=== PATIENT | male | born 1950 | race Caucasian/White ===

== ENCOUNTER 2016-11-17 21:45 | Observation (INO) | payer BC ==
[2016-11-17] MEDS ORDERED: Aspirin Low Dose CHEW TAB* 81 MG PO ONE (21:58)
[2016-11-18] LABS: Hematocrit 34 % (42-52); Hemoglobin 11.1 g/dl (14.0-18.0); Mean Corpuscular HGB Conc 33 g/dl (31-36); Mean Corpuscular Hemoglobin 28 pg (27-31); Mean Corpuscular Volume 84 fL (80-94); Mean Platelet Volume 7 um3 (7.4-10.4); Red Blood Count 4.04 10^6/ul (4.0-5.4); Red Cell Distribution Width 14 % (10.5-15); White Blood Count 10.7 10^3/ul (3.5-10.8)
[2016-11-18] MEDS ORDERED: Albuterol/Ipratropium NEB.SOL* Albuterol 2.5 MG/Ipratropium 0.5 MG 3 ML INH ONE (00:16)
[2016-11-18 00:18] LABS: Albumin 3.4 g/dL (3.2-5.2); BUN/Creatinine Ratio 18.1 (8-20); Calcium 8.8 mg/dL (8.6-10.3); EGFR African American 73.4 (>60); EGFR Non-African American 57.1 (>60); Globulin 3.3 g/dL (2-4); Potassium 3.8 mmol/L (3.5-5.0); Total Bilirubin 0.4 mg/dL (0.2-1.0); Total Protein 6.7 g/dL (6.4-8.9)
[2016-11-18 00:23] LABS: Troponin I 0.1 ng/mL (<0.04)
[2016-11-18] MEDS ORDERED: Iodixanol* (CONTRAST) 320 MG/ML 100 ML SDV IV ONE (00:23)
[2016-11-18] MEDS: Nitroglycerin TAB 0.4 MG* 0.4 MG TAB SL ONE ×2 (01:13→01:30)
--- NOTE | 2016-11-18 01:29 | ED ---
HPI Chest Pain - HPI Summary HPI Summary: 66M, hx high cholesterol, presenting for 2 weeks of progressive dyspnea on exertion. He reports night sweats. He also reports difficulty getting a deep breath. He denies dizziness. He reports intermittent heartburn and pain in his throat/jaw, currently 4/10. l He was sent to theED by his PCP, Dr. Emerson, who called me with a positive D- dimer of 650. The patient is sent in for further workup. - History of Current Complaint Chief Complaint: EDShortnessOfBreath Time Seen by Provider: 11/17/16 21:54 Hx Obtained From: Patient Onset/Duration: Started Days Ago - 14 days ago, Atraumatic Timing: Intermittent Initial Severity: Mild Current Severity: None Pain Intensity: 4 Chest Pain Radiates: No Chest Pain Radiates To:: Jaw Character: Burning, Dyspnea at Exertion Aggravating Factor(s): Deep Breaths, Other: - cough Associated Signs and Symptoms: Positive: Diaphoresis, Cough - Risk Factors Pulmonary Embolism Risk Factors: Negative TAD Risk Factors: Negative AMI/ACS Risk Factors: Dyslipidemia - Additional Pertinent History Primary Care Physician: Ki Referred By: PCP Previous Visit Within 72 Hours for the same complaint: PCP Recent Stress Test: No - Allergy/Home Medications Allergies/Adverse Reactions: Allergies Allergy/AdvReac Type Severity Reaction Status Date / Time SEASONAL Allergy CONGESTION, Uncoded 11/17/16 23:21 RUNNY NOSE PMH/Surg Hx/FS Hx/Imm Hx Previously Healthy: No Endocrine/Hematology History: Denies: Hx Diabetes, Hx Thyroid Disease Cardiovascular History: Reports: Hx Hypercholesterolemia Denies: Hx Congestive Heart Failure, Hx Hypertension, Hx Pacemaker/ICD Respiratory History: Denies: Hx Asthma, Hx Chronic Obstructive Pulmonary Disease (COPD) GI History: Denies: Hx Ulcer History: Denies: Hx Dialysis, Hx Renal Disease Musculoskeletal History: Denies: Hx Rheumatoid Arthritis, Hx Osteoporosis Sensory History: Denies: Hx Hearing Aid Psychiatric History: Denies: Hx Panic Disorder - Surgical History Surgery Procedure, Year, and Place: Left rotator cuff repair 2007. knee repair , cyst removed in 1979. 2015 VOCAL CORD SURGERY Infectious Disease History: No Infectious Disease History: Denies: Hx Clostridium Difficile, Hx Hepatitis, Hx Human Immunodeficiency Virus (HIV), Hx of Known/Suspected MRSA, Hx Shingles, Hx Tuberculosis, Hx Known/ Suspected VRE, Hx Known/Suspected VRSA, History Other Infectious Disease, Traveled Outside the [place] in Last 30 Days - Social History Alcohol Use: Occasionally Substance Use Type: Reports: None Smoking Status (MU): Former Smoker Type: Cigarettes Amount Used/How Often: 1 pack a day Length of Time of Smoking/Using Tobacco: 11 years Have You Smoked in the Last Year: No Review of Systems Constitutional: Negative Eyes: Negative ENT: Negative Cardiovascular: Negative Positive: Chest Pain Positive: Shortness Of Breath, Cough - nonproductive Gastrointestinal: Negative Genitourinary: Negative Musculoskeletal: Negative Skin: Negative Neurological: Negative Psychological: Normal All Other Systems Reviewed And Are Negative: Yes Physical Exam Triage Information Reviewed: Yes Vital Signs On Initial Exam: Initial Vitals Temp Pulse Resp BP Pulse Ox 36.9 C 90 18 116/73 100 11/17/16 21:59 11/17/16 21:59 11/17/16 21:59 11/17/16 21:59 11/17/16 21:59 Vital Signs Reviewed: Yes Appearance: Positive: Well-Appearing Skin: Positive: Warm Head/Face: Positive: Normal Head/Face Inspection Eyes: Positive: Normal ENT: Positive: Normal ENT inspection Neck: Positive: Supple Respiratory/Lung Sounds: Positive: Clear to Auscultation Cardiovascular: Positive: Normal Abdomen Description: Positive: Nontender Bowel Sounds: Positive: Present Musculoskeletal: Positive: Normal Neurological: Positive: Normal Psychiatric: Positive: Normal AVPU Assessment: Alert - Albert Coma Scale Coma Scale Total: 15 Diagnostics - Vital Signs Vital Signs Temp Pulse Resp BP Pulse Ox 11/17/16 23:22 36.9 C 90 16 116/73 97 11/17/16 21:59 36.9 C 90 18 116/73 100 - Laboratory Lab Results: Lab Results 11/17/16 11/17/16 11/17/16 Range/Units 23:45 23:45 23:45 WBC 10.7 (3.5-10.8) 10^3/ul RBC 4.04 (4.0-5.4) 10^6/ul Hgb 11.1 L (14.0-18.0) g/dl Hct 34 L (42-52) % MCV 84 (80-94) fL MCH 28 (27-31) pg MCHC 33 (31-36) g/dl RDW 14 (10.5-15) % Plt Count 215 (150-450) 10^3/ul MPV 7 L (7.4-10.4) um3 Neut % (Auto) 71.1 (38-83) % Lymph % (Auto) 20.6 L (25-47) % Monroe % (Auto) 7.5 (1-9) % Eos % (Auto) 0.3 (0-6) % Baso % (Auto) 0.5 (0-2) % Absolute Neuts (auto) 7.6 (1.5-7.7) 10^3/ul Absolute Lymphs (auto) 2.2 (1.0-4.8) 10^3/ul Absolute Monos (auto) 0.8 (0-0.8) 10^3/ul Absolute Eos (auto) 0 (0-0.6) 10^3/ul Absolute Basos (auto) 0.1 (0-0.2) 10^3/ul Absolute Nucleated RBC 0 10^3/ul Nucleated RBC % 0 Sodium 134 (133-145) mmol/L Potassium 3.8 (3.5-5.0) mmol/L Chloride 102 (101-111) mmol/L Carbon Dioxide 27 (22-32) mmol/L Anion Gap 5 (2-11) mmol/L BUN 23 (6-24) mg/dL Creatinine 1.27 H (0.67-1.17) mg/dL Est GFR ( Amer) 73.4 (>60) Est GFR (Non-Af Amer) 57.1 (>60) BUN/Creatinine Ratio 18.1 (8-20) Glucose 118 H (70-100) mg/dL Lactic Acid 0.7 (0.5-2.0) mmol/L Calcium 8.8 (8.6-10.3) mg/dL Total Bilirubin 0.40 (0.2-1.0) mg/dL AST 26 (13-39) U/L ALT 36 (7-52) U/L Alkaline Phosphatase 94 (34-104) U/L Troponin I 0.10 H* (<0.04) ng/mL Total Protein 6.7 (6.4-8.9) g/dL Albumin 3.4 (3.2-5.2) g/dL Globulin 3.3 (2-4) g/dL Albumin/Globulin Ratio 1.0 (1-3) Result Diagrams: 11/17/16 23:45 11/17/16 23:45 Lab Statement: Any lab studies that have been ordered have been reviewed, and results considered in the medical decision making process. - CT No standard instances CT Interpretation: No Acute Changes CT Interpretation Completed By: ED Physician, Radiologist Chest Pain Course/Dx - Diagnoses Provider Diagnoses: Elevated troponin, Chest pain, unspecified, Dyspnea Discharge - Discharge Plan Condition: Good Disposition: ADMITTED TO [facility]
[2016-11-18] MEDS ORDERED: Acetaminophen TAB* 325 MG PO PRN (01:34)
[2016-11-18] MEDS ORDERED: traMADol TAB* 50 MG PO PRN (01:34)
[2016-11-18] MEDS ORDERED: CMCS: Melatonin (NF) 3 MG TAB PO PRN (01:34)
[2016-11-18] MEDS ORDERED: Albuterol 2.5 MG/3 ML NEB.SOL* (0.083%) INH PRN (01:34)
[2016-11-18] MEDS ORDERED: Morphine INJ* 2 MG/ML 1 ML SYRINGE IV PRN (01:34)
[2016-11-18] MEDS ORDERED: Ondansetron INJ* 2 MG/ML VIAL IV PRN (01:34)
[2016-11-18] MEDS ORDERED: NS 0.9% 1000 ML* 1,000 ML IV SCH (01:45)
[2016-11-18] MEDS: Metoprolol Tartrate TAB* 25 MG PO SCH ×2 (02:00→09:42)
--- NOTE | 2016-11-18 02:53 | HP ---
H&P (Free Text) History and Physical: PCP: Valdo Emerson MD Cardiology: Loki Harman MD Date/Time of Evaluation: 11/18/2016 0130 CC: SOB HPI: Mr Triana is a 66YO male HX HLD who has been having mild stable SOB for the past 2 weeks as well as intermittent chest heaviness, although they are not necessarily associated. He denies F/C, weight loss, N/V, changes in bowel/ bladder, black/bloody stool, palpitations, or light-headedness. There has been no radiation of the heaviness. His bigger complaint is of nightly night-sweats for the past month. Labs ordered by his PCP today were concerning for a d-dimer of >600 for which he was recommended to come [place] [facility] [place]. 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; full code status FamHx: denies ROS: as above, otherwise reviewed and all were negative Constitutional: NAD, normally developed, well-nourished white male vitals: Vital Signs Temp 36.9 C 11/17/16 23:22 Pulse 99 11/18/16 02:00 Resp 16 11/17/16 23:22 BP 115/64 11/18/16 01:30 Pulse Ox 97 11/18/16 02:00 Intake & Output 11/17/16 11/17/16 11/18/16 11:59 23:59 11:59 Weight 64.864 kg 64.864 kg HEENM: atraumatic; sclera/conjunctiva: non-icteric/clear; hearing: clinically intact; oropharynx: clear, mucosa moist Neck: soft tissue: ; thyroid: Pulmonary: clear to auscultation bilaterally, good aeration, no accessory muscle use CV: RR/RR, normal S1S2, no carotid bruit, no jugular venous distention, 2+ B DP/ PT, no edema Abdominal: soft, non-distended, non-tender, no rebound/guarding/rigidity, normoactive bowel sounds, no hepatosplenomegaly or masses, no costovertebral angle tenderness Musculoskeletal: general: grossly intact; gait: stable Integumental: normal appearance and texture of exposed skin Psychiatric orientation: AA&O to PPS affect: calm mood: cooperative eye contact: good content: reliable, minimizes responses: timely insight: good Testing: Lab Results 11/17/16 11/17/16 11/17/16 Range/Units 23:45 23:45 23:45 WBC 10.7 (3.5-10.8) 10^3/ul RBC 4.04 (4.0-5.4) 10^6/ul Hgb 11.1 L (14.0-18.0) g/dl Hct 34 L (42-52) % MCV 84 (80-94) fL MCH 28 (27-31) pg MCHC 33 (31-36) g/dl RDW 14 (10.5-15) % Plt Count 215 (150-450) 10^3/ul MPV 7 L (7.4-10.4) um3 Neut % (Auto) 71.1 (38-83) % Lymph % (Auto) 20.6 L (25-47) % Faulkner % (Auto) 7.5 (1-9) % Eos % (Auto) 0.3 (0-6) % Baso % (Auto) 0.5 (0-2) % Absolute Neuts (auto) 7.6 (1.5-7.7) 10^3/ul Absolute Lymphs (auto) 2.2 (1.0-4.8) 10^3/ul Absolute Monos (auto) 0.8 (0-0.8) 10^3/ul Absolute Eos (auto) 0 (0-0.6) 10^3/ul Absolute Basos (auto) 0.1 (0-0.2) 10^3/ul Absolute Nucleated RBC 0 10^3/ul Nucleated RBC % 0 Sodium 134 (133-145) mmol/L Potassium 3.8 (3.5-5.0) mmol/L Chloride 102 (101-111) mmol/L Carbon Dioxide 27 (22-32) mmol/L Anion Gap 5 (2-11) mmol/L BUN 23 (6-24) mg/dL Creatinine 1.27 H (0.67-1.17) mg/dL Est GFR ( Amer) 73.4 (>60) Est GFR (Non-Af Amer) 57.1 (>60) BUN/Creatinine Ratio 18.1 (8-20) Glucose 118 H (70-100) mg/dL Lactic Acid 0.7 (0.5-2.0) mmol/L Calcium 8.8 (8.6-10.3) mg/dL Total Bilirubin 0.40 (0.2-1.0) mg/dL AST 26 (13-39) U/L ALT 36 (7-52) U/L Alkaline Phosphatase 94 (34-104) U/L Troponin I 0.10 H* (<0.04) ng/mL Total Protein 6.7 (6.4-8.9) g/dL Albumin 3.4 (3.2-5.2) g/dL Globulin 3.3 (2-4) g/dL Albumin/Globulin Ratio 1.0 (1-3) ECG, personally reviewed: NSR rate 83, no ischemia CTA chest, personally reviewed: no PE or pneumonia seen, final report pending XRY sinus series, personally reviewed: no sinus air/fluid level seen, final report pending Impression: 66M presenting with SOB/chest heaviness x2 weeks & night sweats x1 month DIAGNOSIS & PLAN Primary SOB/chest heaviness & elevated troponin : primary dDx: unstable angina vs occult infection w/ demand ischemia : telemetry : trend troponin : aspirin : metoprolol : supplemental oxygen : NPO for exercise stress test in AM : supportive care night sweats : primary dDx: occult infection vs neoplastic process (leukemia/lymphoma) vs other : check sinus XRY series : trial of levofloxacin PO : continue outpatient monitoring and work up via PCP Secondary HLD : continue statin Admission Rational: CDU admission for r/o ACS DVTp: heparin SQ Code Status: full HCP:
[2016-11-18] MEDS ORDERED: Omeprazole CAP* 20 MG PO SCH (06:00)
--- NOTE | 2016-11-18 07:52 | RAD ---
INDICATION: Shortness of breath elevated d-dimer. COMPARISON: Comparison is made with a prior CT of the chest from November 07, 2013. TECHNIQUE: A CT angiogram of the chest was performed with intravenous following intravenous injection of 67 ml of Visipaque 320 nonionic contrast. Contiguous axial sections were obtained from the lung apices through the lung bases. Images were reconstructed in the coronal and sagittal planes. FINDINGS: There is relatively homogeneous opacification of the pulmonary arteries. No intraluminal filling defect or pulmonary embolism is seen. The heart is within normal limits in size. No pericardial effusion is present. The thoracic aorta is normal in caliber and demonstrates homogeneous contrast opacification. No significant enlarged mediastinal or hilar lymph nodes are seen. There is a bulla present at the right lung apex and in the right lower lobe with a minimally thickened wall which was present on the prior study. There is mild dependent bilateral lower lobe subsegmental atelectasis. The lungs are otherwise clear. No pleural effusion is present. There is a 1.7 cm solid nodule in the right adrenal gland which is unchanged from the prior exam and therefore most consistent with a benign adenoma. There is a calcification within the gallbladder. No significant focal osseous abnormality is seen. IMPRESSION: 1. NO EVIDENCE FOR PULMONARY EMBOLISM. 2. STABLE RIGHT ADRENAL NODULE FAVORING A BENIGN ADENOMA. 3. CHOLELITHIASIS.
--- NOTE | 2016-11-18 07:55 | RAD ---
INDICATION: Cough and night sweats. TECHNIQUE: 4 views of the paranasal sinuses were obtained. FINDINGS: The paranasal sinuses appear clear. No significant focal osseous abnormality is seen. IMPRESSION: NO EVIDENCE FOR SINUSITIS.
[2016-11-18] MEDS ORDERED: Docusate CAP* 100 MG PO SCH (09:00)
[2016-11-18] MEDS ORDERED: Levofloxacin TAB* 750 MG PO SCH (09:00)
[2016-11-18] MEDS ORDERED: Aspirin Low Dose CHEW TAB* 81 MG PO SCH (09:00)
[2016-11-18] MEDS ORDERED: Atorvastatin* 10 MG TAB PO SCH (09:00)
[2016-11-18 13:48] VITALS: BP 118/72
--- NOTE | 2016-11-18 15:12 | DCNOTE ---
Patient seen this AM and again in the afternoon. He reports no symptoms here in the hospital, is anxious to leave. Did not get much sleep which is why he says he did not have night sweats last night. On exam, RRR, s1 and s2 present, PRATIK, lungs CTA B/L, no w/r/r, abd soft, NTND, BS+ Exercise stress test normal. Lab work (aside from troponin elevation) normal. Procalcitonin normal. Will discharge home with close PCP follow-up regarding ongoing night sweats.
--- NOTE | 2016-11-18 16:08 | DS ---
CC: Dr. Emerson DATE OF ADMISSION: 11/17/2016. DATE OF DISCHARGE: 11/18/2016. PRIMARY CARE PHYSICIAN: Dr. Emerson. PRINCIPAL DISCHARGE DIAGNOSES: Chest tightness, troponin elevation, night sweats. STUDIES DONE DURING HOSPITALIZATION: 1. CTA of the chest: Impression: No evidence for pulmonary embolism. Stable right adrenal nodule favoring a benign adenoma. Cholelithiasis. 2. Paranasal sinus x-rays: Impression: No evidence for sinusitis. 3. Exercise stress test: Low risk. No concern for ischemia. DISCHARGE MEDICATION REGIMEN: 1. Aspirin 81 mg by mouth daily. 2. Atorvastatin 40 mg by mouth daily. 3. Clarinex 5 mg by mouth daily. HISTORY OF PRESENT ILLNESS AND HOSPITAL SUMMARY: Please see the full history and physical by Dr. Hugh Sung for full details. Briefly, Mr. Triana is a 66-year- old man with a past medical history of hyperlipidemia and seasonal allergies who presented to the hospital after his PCP found him to have an elevated D-dimer as an outpatient. This was drawn in the setting of work-up for ongoing night sweats and apparently the patient was also having some intermittent chest tightness. He underwent a CTA of the chest which as above showed no evidence of pulmonary embolism. He was also noted to have an elevated troponin on admission of 0.10. This was trended and continued to trend back towards normal. Due to this and his intermittent chest tightness, he underwent a cardiac stress test on the treadmill that was negative for any signs of ischemia. The patient felt well throughout the hospitalization and did not have night sweats here, although he said he did not sleep very much either. The patient will be discharged home with no medication changes, but will need to follow-up with Dr. Emerson in the setting of his night sweats as there is an ongoing work-up. He did not endorse any weight loss as part of his symptoms. His blood work was largely normal, including a normal procalcitonin. Total time spent on this discharge was 45 minutes. This is a summary of this hospitalization. Please see the full medical record for further details. [id number]/CPS #: [id number] MTDD
[2016-11-18] MEDS ORDERED: Cetirizine* 10 MG TAB PO SCH (18:00)
[2016-11-19] MEDS ORDERED: Heparin VIAL(*) 5000 UNITS/ML VIAL (FIVE THOUSAND) SUBCUT SCH (06:00)
== END 2016-11-18 15:30 | disposition home or self-care (01) ==
LOC: ED 21:45 → MEDTELE 11-18 01:31
PROVIDERS: ADMIT Hospitalist; ATTEND Hospitalist
DX: R07.9 Chest pain, unspecified (principal); R74.8 Abnormal levels of other serum enzymes; R06.00 Dyspnea, unspecified; R61 Generalized hyperhidrosis; E78.5 Hyperlipidemia, unspecified; K80.20 Calculus of gallbladder without cholecystitis without obstruction; R01.1 Cardiac murmur, unspecified; Z87.891 Personal history of nicotine dependence
CPT/HCPCS: 36415; 70220; 71275; 80053; 83605; 84145; 84484; 85025; 93005; 99285; A9270-GY; G0378; Q9967

== ENCOUNTER 2016-12-08 17:52 | Inpatient (IN) | payer BC ==
[2016-12-08] MEDS ORDERED: NS 0.9% 1000 ML* 1,000 ML IV ONE (19:40)
[2016-12-08] MEDS ORDERED: Ondansetron INJ* 2 MG/ML VIAL IV PRN (20:00)
[2016-12-08] MEDS ORDERED: Al Hydrox/Mg Hydrox/Simet LIQ* 30 ML UDC PO PRN (20:00)
[2016-12-08] MEDS ORDERED: Senna TAB PO PRN (20:00)
[2016-12-08] MEDS ORDERED: Docusate CAP* 100 MG PO PRN (20:00)
[2016-12-08] MEDS ORDERED: Acetaminophen TAB* 325 MG PO PRN (20:00)
[2016-12-08] MEDS ORDERED: Vancomycin(*) 1,250 MG in NS 0.9% 250 ML* 250 ML IVPB ONE (20:02)
[2016-12-08 20:07] LABS: Hematocrit 34 % (42-52); Hemoglobin 11.2 g/dl (14.0-18.0); Mean Corpuscular HGB Conc 33 g/dl (31-36); Mean Corpuscular Hemoglobin 27 pg (27-31); Mean Corpuscular Volume 84 fL (80-94); Mean Platelet Volume 7 um3 (7.4-10.4); Red Blood Count 4.09 10^6/ul (4.0-5.4); Red Cell Distribution Width 14 % (10.5-15); White Blood Count 7.3 10^3/ul (3.5-10.8)
[2016-12-08] MEDS ORDERED: diPHENhydraMINE PO* 50 MG PO PRN (20:07)
[2016-12-08] MEDS ORDERED: NS 0.9% 250 ML* 250 ML ONE (20:09)
--- NOTE | 2016-12-08 20:10 | ED ---
rubia Banuelos Timothy, scribed for Yovany Clarke MD on 12/08/16 at 1941 . Complex/Multi-Sys Presentation - HPI Summary HPI Summary: Jose Triana is a 66 yo male presenting to [facility] referred by Dr. Kaplan as his blood cultures are positive for bacterial growth. He is not in any current pain at this time. He states blood cultures were done due to chronic night sweats over the past 2.5 months. He denies any N/V/D. His MHx includes valvular heart disease, HLD, chronic back pain, tobacco use. - History Of Current Complaint Chief Complaint: EDGeneral Time Seen by Provider: 12/08/16 19:39 Hx Obtained From: Patient Onset/Duration: Gradual Onset, Lasting Weeks, Still Present Timing: Constant Severity Currently: Moderate Severity Initially: Moderate Associated Signs And Symptoms: Positive: Other - bacterial culture growth from blood - Allergies/Home Medications Allergies/Adverse Reactions: Allergies Allergy/AdvReac Type Severity Reaction Status Date / Time SEASONAL Allergy CONGESTION, Uncoded 11/17/16 23:21 RUNNY NOSE Home Medications: Home Medications Aspirin EC Low Dose* [Ecotrin EC Low Dose 81 MG*] 81 mg PO DAILY 12/08/16 [ History Confirmed 12/08/16] Atorvastatin* [Lipitor*] 20 mg PO DAILY 12/08/16 [History Confirmed 12/08/16] DOXYcycline CAP(*) [DOXYcycline 100MG CAP(*)] 100 mg PO BID AC 12/08/16 [ History Confirmed 12/08/16] Desloratidine (NF) [Clarinex (NF)] 5 mg PO DAILY 12/08/16 [History Confirmed 04/16] Temazepam CAP* [Restoril CAP*] 30 mg PO BEDTIME MDD 30 mg 12/08/16 [History Confirmed 12/08/16] guaiFENesin/CODIEN 100MG-10MG* [Robitussin AC 100Mg-10Mg*] 5 - 10 ml PO Q4H PRN 12/08/16 [History Confirmed 12/08/16] PMH/Surg Hx/FS Hx/Imm Hx Endocrine/Hematology History: Denies: Hx Diabetes, Hx Thyroid Disease Cardiovascular History: Reports: Hx Hypercholesterolemia, Hx 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 Denies: Hx Angina, Hx Congestive Heart Failure, Hx Coronary Artery Disease, Hx Hypertension, Hx Myocardial Infarction, Hx Pacemaker/ICD Respiratory History: Denies: Hx Asthma, Hx Chronic Obstructive Pulmonary Disease (COPD) GI History: Denies: Hx Ulcer History: Denies: Hx Dialysis, Hx Renal Disease Musculoskeletal History: Denies: Hx Rheumatoid Arthritis, Hx Osteoporosis Sensory History: Reports: Hx Contacts or Glasses Denies: Hx Hearing Aid Opthamlomology History: Reports: Hx Contacts or Glasses Psychiatric History: Denies: Hx Panic Disorder - Surgical History Surgery Procedure, Year, and Place: Left rotator cuff repair 2007. knee repair , cyst removed in 1979. 2015 VOCAL CORD SURGERY Infectious Disease History: No Infectious Disease History: Denies: Hx Clostridium Difficile, Hx Hepatitis, Hx Human Immunodeficiency Virus (HIV), Hx of Known/Suspected MRSA, Hx Shingles, Hx Tuberculosis, Hx Known/ Suspected VRE, Hx Known/Suspected VRSA, History Other Infectious Disease, Traveled Outside the [place] in Last 30 Days - Family History Known Family History: Positive: Cardiac Disease Negative: Hypertension, Diabetes - Social History Alcohol Use: Occasionally Substance Use Type: Reports: None Smoking Status (MU): Former Smoker Type: Cigarettes Amount Used/How Often: 1 pack a day Length of Time of Smoking/Using Tobacco: 11 years Have You Smoked in the Last Year: No Review of Systems Constitutional: Other - positive bacteral blood culture growth Positive: Skin Diaphoresis - "night sweats" Eyes: Negative ENT: Negative Cardiovascular: Negative Respiratory: Negative Gastrointestinal: Negative Genitourinary: Negative Musculoskeletal: Negative Skin: Negative Neurological: Negative Psychological: Normal All Other Systems Reviewed And Are Negative: Yes Physical Exam Triage Information Reviewed: Yes Vital Signs On Initial Exam: Initial Vitals Pulse Resp BP Pulse Ox 96 17 126/79 100 12/08/16 18:23 12/08/16 18:23 12/08/16 18:23 12/08/16 18:23 Vital Signs Reviewed: Yes Appearance: Positive: Well-Appearing, No Pain Distress Skin: Positive: Warm Head/Face: Positive: Normal Head/Face Inspection Eyes: Positive: Normal ENT: Positive: Hearing grossly normal Neck: Positive: Supple, Nontender Respiratory/Lung Sounds: Positive: Clear to Auscultation, Breath Sounds Present Cardiovascular: Positive: RRR. Negative: Murmur Abdomen Description: Positive: Nontender, No Organomegaly, Soft Bowel Sounds: Positive: Present Musculoskeletal: Positive: Strength/ROM Intact Neurological: Positive: Alert, Oriented to Person Place, Time - Albert Coma Scale Coma Scale Total: 15 Diagnostics - Vital Signs Vital Signs Temp Pulse Resp BP Pulse Ox 12/08/16 19:09 98 F 87 18 116/74 95 12/08/16 19:00 88 28 116/74 96 12/08/16 18:58 116/70 12/08/16 18:23 96 17 126/79 100 - Laboratory Result Diagrams: 12/08/16 20:00 12/08/16 20:00 Lab Statement: Any lab studies that have been ordered have been reviewed, and results considered in the medical decision making process. Complex Multi-Symp Course/Dx Assessment/Plan: Jose Triana is a 66 yo male [facility] referred by Dr. Kaplan for positive bacterial blood culture growth. Pt medication list reviewed this visit. In the ED course he received IV fluids. After clinical examination and discussion with Dr. Kaplan and Dr. Garsia, he will be admitted to [facility] for further observation, evaluation, and treatment. Pt was admitted with EKG, CXR, and lab studies pending. 0744 - Dr. Garsia (hopsitalist) - discussed Pt ocndition and discussion with Dr. Kaplan, agrees to admit Pt. - Diagnoses Provider Diagnoses: Bacteremia - Physician Notifications Discussed Care Of Patient With: Juan J Kaplan MD - Discussed Pt condition and requests for Tx. Time Discussed With Above Provider: 19:42 Instructed by Provider To: Admit As Inpatient Discharge - Discharge Plan Condition: Fair Disposition: ADMITTED TO [facility] Discharge Disposition Comment: admission for further observation, evaluation, and treatment. The documentation as recorded by the rubia farfan Timothy accurately reflects the service I personally performed and the decisions made by me, Yovany Clarke MD.
[2016-12-08 20:25] LABS: Albumin 3.5 g/dL (3.2-5.2); BUN/Creatinine Ratio 19.8 (8-20); C Reactive Protein 71.13 mg/L (< 5.00); Calcium 8.8 mg/dL (8.6-10.3); EGFR African American 95.6 (>60); EGFR Non-African American 74.4 (>60); Globulin 3.6 g/dL (2-4); Total Bilirubin 0.4 mg/dL (0.2-1.0); Total Protein 7.1 g/dL (6.4-8.9)
[2016-12-08 20:41] LABS: Urine Bilirubin Negative (Negative); Urine Glucose Negative (Negative); Urine Nitrite Negative (Negative)
[2016-12-08 20:56] LABS: Urine Bacteria Absent (Absent)
[2016-12-08] MEDS ORDERED: Vancomycin per Pharmacy* NOTE FOLLOW UP SCH (21:00)
[2016-12-08] MEDS: Heparin VIAL(*) 5000 UNITS/ML VIAL (FIVE THOUSAND) SUBCUT SCH (23:00)
[2016-12-08] MEDS: Benzonatate CAP* 100 MG PO PRN (23:06)
[2016-12-08] MEDS: Temazepam CAP* 15 MG PO PRN (23:06)
--- NOTE | 2016-12-09 00:40 | HP ---
CC: Flako Emerson MD * HISTORY AND PHYSICAL: DATE OF ADMISSION: 12/08/16 PRIMARY CARE PHYSICIAN: Flako Emerson MD TIME OF EVALUATION: 1999. CHIEF COMPLAINT: Night sweats and positive blood culture. HISTORY OF PRESENT ILLNESS: This is a 66-year-old male with an unremarkable past medical history who presents to the emergency room after being called from Dr. Duff that he had positive blood culture. The patient states he has had 8 weeks of night sweats that seemed to have gotten progressively worse, where he goes through several T-shirts and towels throughout the evening. He is also noted to have a dry cough as well. The patient was admitted back in October for shortness of breath and had a negative stress test. He has been seen by Dr. Emerson and has had an extensive workup for his night sweats with an unremarkable workup, was then sent to Dr. Duff, was seen in his office yesterday on the Dr. Duff sent him for blood cultures that came back gram-positive cocci. The patient denies any weight loss. No chest pain, no shortness of breath. No nausea or vomiting. Two days ago he had an episode of diarrhea that has since resolved. He denies any urinary symptoms. No rash. No leg swelling. No joint pain. Otherwise, remaining review of systems is negative. In the emergency room, the patient had labs and was referred to the hospitalist service for further evaluation. PAST MEDICAL HISTORY: 1. History of idiopathic partial vocal cord paralysis. Was told by physicians in [facility] [place] that he could lose his voice and develop full vocal cord paralysis if he was ever intubated. 2. History of a cardiac murmur. 3. Hyperlipidemia. 4. Seasonal allergies. 5. Insomnia. 6. History of admission from 11/18/16 to 11/19/16 for shortness of breath. Negative stress test at that time. MEDICATIONS: 1. Naproxen as needed. 2. Aspirin 81 mg daily. 3. Atorvastatin 20 mg daily. 4. Clarinex 5 mg daily. 5. Benadryl 3 tabs as needed at bedtime for sleep. 6. Restoril as needed at bedtime. ALLERGIES: No known drug allergies. FAMILY HISTORY: Mother is alive at age 96. Father at age 92 from a stroke. 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 He quit smoking about 25 years ago, at that time he smoked about half a pack to a pack per day for 15 years. Occasional alcohol use. No illicit drug use. Code status is full code. REVIEW OF SYSTEMS: A 14-point review of systems has been reviewed. Pertinent positives and negatives are mentioned in the HPI, otherwise negative. PHYSICAL EXAMINATION GENERAL: In no acute distress, resting comfortably with his at the bedside. VITAL SIGNS: Temp 98, pulse rate 88, respiratory rate 20, oxygen saturation 96% , blood pressure 121/66. HEENT: Head normocephalic. Pupils equal and reactive. Oropharynx; mucous membranes are moist. No erythema or exudate. NECK: Supple. No adenopathy. RESPIRATORY: Clear to auscultation. No wheezes, rhonchi, or rales. CARDIAC: Regular rate and rhythm. Blowing systolic murmur, most prominent at the apex. ABDOMEN: Soft, nontender, and nondistended. EXTREMITIES: No cyanosis, clubbing, or edema. +2 DPs. NEUROLOGIC: Alert and oriented x3. No focal neurologic deficits. Unable to appreciate any significant rashes or lesions. LABORATORY DATA: Still pending at this time. Of note, his blood culture from 12/07/16 is gram-positive cocci resembling strep. ASSESSMENT: This is a 66-year-old male with a past medical history of 8 weeks of night sweats and dry cough, found to have positive blood culture. Bacteremia. Assessment: With the duration of his symptoms, it is certainly concerning for a subacute endocarditis. Plan: Per Dr. Duff is to start him on vancomycin and ceftriaxone. We will place him n.p.o. after midnight and order a transesophageal echocardiogram. I did speak with Cardiology regarding his concern about his vocal cord paralysis issue, they do not feel this to be a concern, but to sign out to the physician in the morning to pass this along, which I will do so. We will also check a urine culture as well. The patient has been ordered baseline labs and blood culture. I will follow up with these this evening. CHRONIC MEDICAL PROBLEMS: 1. Hyperlipidemia. We will resume his atorvastatin. We will continue his baby aspirin. 2. Insomnia. Resume his Restoril and Benadryl as needed at bedtime. 3. FEN. We will place the patient on a regular diet. N.p.o. after midnight. 4. DVT prophylaxis. The patient's score is moderate risk. We will start him on heparin subcu t.i.d. 5. Code status. Full code. TIME SPENT: Greater than 65 minutes spent doing the history and physical, more than half the time was spent in direct patient contact. [id number]/[facility] #: [id number] KEVIN
[2016-12-09] MEDS: Vancomycin(*) 1,000 MG in NS 0.9% 250 ML* 250 ML IVPB SCH ×3 (05:30→22:25)
[2016-12-09] MEDS: Heparin VIAL(*) 5000 UNITS/ML VIAL (FIVE THOUSAND) SUBCUT SCH ×2 (05:33→14:01)
--- NOTE | 2016-12-09 12:48 | ECHO ---
Patient: PAULETTE SANABRIA [facility] Rec#: [id number] : 1950 Date: 12/09/2016 Age: 66y Height: 170.18 cm / 67.0 in Weight: 68.04 kg / 150.0 lbs Sex: M BSA: 1.79 Room#: 415 Admit Date#: 12/08/2016 Type: Inpatient Referring: Juan J Duff MD Reading: Paulette Harman MD Business Services Tech: Batsheva Roach,RDCS,RDMS CC: Flako Emerson MD Transthoracic Echocardiogram Indication: Bacteremia BP: 122/67 HR: 77 Rhythm: NSR Findings History: Murmur, MVP, HLD Technical Comments: The study quality is good. Completed 1110 Left Ventricle: The left ventricular chamber size is normal. Mild concentric left ventricular hypertrophy is observed. The estimated ejection fraction is 55-60%. closer to 60%. There is no consistent Doppler evidence of clinically significant diastolic dysfunction. Left Atrium: The left atrial chamber size is normal. Right Ventricle: The right ventricular chamber size and systolic function are within normal limits. The right ventricular global systolic function is low normal. Right Atrium: The right atrial cavity size is normal. Aortic Valve: The aortic valve leaflets are mildly thickened. Systolic excursion of the aortic valve is normal. There is aortic annular calcification. There is a trace of aortic regurgitation. There is no evidence of aortic stenosis. There is no aortic vegetation present. Mitral Valve: The mitral valve leaflets are mildly thickened. There is mild mitral valve prolapse. There is prolapse of the posterior leaflet of the mitral valve. There is mild to moderate mitral regurgitation. The mitral regurgitant jet is eccentric.directed toward the interatrial septum. There is no evidence of mitral stenosis. A mass is visualized on the mitral valve which appears consistent with a vegetation.The echodense lesion is mobile and elongated meauring 7 mm. It appears to be attached to the anterior leaflet and prolapses into the LA during systole. The findings are suspicious for SBE or less likely, a ruptured chordae tendinae. Tricuspid Valve: The tricuspid valve leaflets are normal. There is trace tricuspid regurgitation. No pulmonary hypertension is noted. No vegetation is observed on the tricuspid valve. Pulmonic Valve: The pulmonic valve appears normal. There is a trace pulmonic regurgitation. No vegetation is observed on the pulmonic valve. Pericardium: There is no significant pericardial effusion. Aorta: The ascending aorta is not well visualized. There is no dilatation of the aortic arch. The aortic root is normal in size. Pulmonary Artery: The main pulmonary artery is not well visualized. Venous: The inferior vena cava is dilated. There is a greater than 50% respiratory change in the inferior vena cava dimension. Conclusions Mild concentric left ventricular hypertrophy is observed. The estimated ejection fraction is 55-60%, closer to 60%. The aortic valve leaflets are mildly thickened. There is a trace of aortic regurgitation. The mitral valve leaflets are mildly thickened. There is prolapse of the posterior leaflet of the mitral valve. There is mild to moderate mitral regurgitation. The mitral regurgitant jet is eccentric directed medially. A mass is visualized on the mitral valve which appears consistent with a vegetation. The echodense lesion is mobile and elongated meauring 7 mm. It appears to be attached to the anterior leaflet and prolapsed into the LA during systole. The findings are suspicious for SBE or less likely, a ruptured chordae tendinae. Compared to prior echo report of , the mitral valve lesion is newly mentioned. The findings are otherwise similar. 12/09/16 12:46 pm ADDENDUM: direct comparison made to 08/2016. At that time, the was a redundant mobile lesion attached to the ventricular surface of the posterior leaflet, possibly representing a mobile chordae or less likely a vegetation. The mobile lesion attached to the anterior leaflet is new c/t 08/2016. Measurements Name Value Normal Range RVIDd (AP) 2D 3 cm (0.9 - 2.6) RVDdMajor (2D) 2.7 cm (2.2 - 4.4) RAd ISD 4CH 4 cm (3.4 - 4.9) RA (A4C)W 4.6 cm (2.9 - 4.6) IVSd (2D) 1.1 cm (0.6 - 1) LVPWd (2D) 1.2 cm (0.6 - 1) LVIDd (2D) 4.1 cm (3.6 - 5.4) LVIDs (2D) 2.8 cm - LV FS (2D) 31 % (25 - 45) Aortic Annulus 2 cm (1.4 - 2.6) Ao root diameter (2D) 3.2 cm (2.1 - 3.5) Aortic arch 2.3 cm (1.8 - 3.4) LA dimension (AP) 2D 3.2 cm (2.3 - 3.8) LAd ISD 4CH 4.5 cm (2.9 - 5.3) LA ISD 4CH W 4 cm (2.5 - 4.5) Name Value Normal Range LA ESV SP 4CH (A/L) 49.59 ml - LA ESV SP 2CH (A/L) 40.32 ml - LA ESV BP (A/L) 49.61 ml - LA ESV BP (A/L) index 28 ml/m2 - LA ESV SP 4CH (MOD) 46.73 ml - LA ESV SP 2CH (MOD) 37.82 ml - Name Value Normal Range MV E-wave Vmax 0.9 m/sec - MV deceleration time 184 msec - MV A-wave Vmax 0.44 m/sec - MV E:A ratio 2.1 ratio - P. vein S-wave Vmax 0.5 m/sec - P. vein D-wave Vmax 0.4 m/sec - P. vein S:D Vmax ratio 1.3 ratio - P. vein A-wave duration 83 msec - LV septal e' Vmax 0.07 m/sec - LV lateral e' Vmax 0.11 m/sec - LV E:e' septal ratio 13 ratio - LV E:e' lateral ratio 8.2 ratio - Name Value Normal Range AV Vmax 1.5 m/sec - AV VTI 27 cm - AV peak gradient 9 mmHg - AV mean gradient 4.7 mmHg - LVOT Vmax 1.2 m/sec - LVOT VTI 20.5 cm - LVOT peak gradient 6 mmHg - LVOT mean gradient 2.6 mmHg - KAMLESH Vmax 1.2 m/sec - Name Value Normal Range TR Vmax 2.4 m/sec - TR peak gradient 23 mmHg - RAP 3 mmHg - RVSP 26 mmHg - IVC diameter 2.5 cm - Name Value Normal Range PV Vmax 0.7 m/sec - PV peak gradient 2 mmHg -
[2016-12-09] MEDS: Aspirin EC Low Dose* 81 MG TAB.EC PO SCH (12:51)
--- NOTE | 2016-12-09 13:25 | CONS ---
CONSULTATION REPORT: DATE OF CONSULT: 12/09/16 REQUESTING PHYSICIAN: Dr. Garsia. CONSULTING SERVICE: Infectious Disease. REASON FOR CONSULTATION: Bacteremia and night sweats. IMPRESSION: 1. Systolic murmur, longstanding though perhaps changing characteristics,, known mitral valve prolapse, 8 weeks of drenching night sweats and gram- positive cocci in chain and blood cultures, taken together most consistent with an infective endocarditis, subacute. He has no focal musculoskeletal complaints to suggest a septic joint or spine abscess. Liver abscess would be a consideration though he has got no transaminitis and only a slight elevation of alkaline phosphatase. 2. History of vocal cord paralysis, apparently persistent and unilateral. 3. Hyperlipidemia. RECOMMENDATION: Continue vancomycin, goal trough at least 20 and ceftriaxone while we await for speciation of the streptococci. I spoke with the ER physician last night and had them obtain another set of blood cultures before the antibiotics were given, those are pending as well. Given the vocal cord paralysis, cardiology recommends having ENT see him that will be done today in preparation for possible transesophageal echocardiogram. In the meantime, I will get a transthoracic echocardiogram. If everything is negative, we will have a CT of the abdomen and pelvis to evaluate for liver abscess. HISTORY OF PRESENT ILLNESS: This is a 66-year-old man with a few weeks of night sweats, admitted with positive blood cultures. He had had the onset of drenching night sweats on , just a couple of weeks after a trip to [place]. Did not get sequelae while he was there. He has not had fevers, chills , or weight loss. His appetite has been good, but each night at 2 in the morning he get drenching sweats that he needs to go through 3 or 4 T-shirts for. He had a course of Levaquin 2 weeks ago without any improvement. He had shortly before that developed a nonproductive cough and had hospital admission for chest pain. A CT of the chest was obtained, which showed no pulmonary embolus, no parenchymal lesions other than old bullous changes. He was discharged, continued to have sweats, I discussed the case with Dr. Emerson last week. We had tick-borne infection PCR that came back negative. I saw him Wednesday, we got blood cultures that came back positive. I asked him to come in for admission last night. He has had no fever overnight, his CRP is 75. He has no focal complaints. PAST MEDICAL HISTORY: 1. Vocal cord paralysis. 2. Hyperlipidemia. 3. Heart murmur. 4. Insomnia. 5. Seasonal allergies. ALLERGIES: No known drug allergies. MEDICATIONS: 1. Tylenol. 2. Aspirin. 3. Lipitor. 4. Senna. 5. Vancomycin. 6. Ceftriaxone. SOCIAL HISTORY: He lives outside of [place]. 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 He had been to [place] a couple of weeks before he got sick. FAMILY HISTORY: No recurrent infections or tuberculosis. REVIEW OF SYSTEMS: All negative for review of systems except as noted above. PHYSICAL EXAM: Vital Signs: Temperature is 37, heart rate 80, respiratory rate 18, blood pressure 100/60, O2 sat 97% on room air. General: He is awake, not in distress. Neurologic: He is oriented x3, follows all commands. Cranial nerves II through XII are intact. HEENT: There is no conjunctival hemorrhage. Oropharynx without lesions. Neck: Neck is supple without nuchal rigidity. Lymph Nodes: There is no cervical, supraclavicular, inguinal, axillary, or epitrochlear lymphadenopathy. Heart: Regular rate and rhythm with 3/6 systolic murmur. Lungs: Clear to auscultation bilaterally. Abdomen: Soft, nontender, nondistended. There is no right upper quadrant tenderness to palpation. There is no rebound. There is bowel sounds present. Skin: There is no rash or splinter hemorrhages. Musculoskeletal: No spine tenderness to palpation or joint synovitis. DIAGNOSTIC STUDIES/LAB DATA: White blood cell count 7, hemoglobin 11, platelets 173. Creatinine 1, CRP 75, alk phos 120. Urinalysis shows blood. Please see impression and recommendations outlined above, which I have discussed with Dr. Jeffries. Thank you for asking me to see Mr. Triana in consultation. [id number]/[facility] #: [id number] KEVIN
[2016-12-09] MEDS: Atorvastatin* 20 MG TAB PO SCH (16:02)
--- NOTE | 2016-12-09 16:19 | PN ---
Subjective Date of Service: 12/09/16 Interval History: Seen and examined with at bedside Patient has no complaints he continues to have night sweats and is curious when they may resolve He is also concerned that if he needs RENNY in the future it may precipitate the need for a laryngeal surgery. Objective Active Medications: Acetaminophen (Tylenol Tab*) 650 mg PO Q4H PRN PRN Reason: FEVER/PAIN Al Hydrox/Mg Hydrox/Simethicone (Maalox Plus*) 30 ml PO Q6H PRN PRN Reason: INDIGESTION Aspirin (Aspirin Ec Low Dose*) 81 mg PO DAILY [facility] Last Admin: 12/09/16 12:51 Dose: 81 mg Atorvastatin Calcium (Lipitor*) 20 mg PO 1700 [facility] Last Admin: 12/09/16 16:02 Dose: 20 mg Benzonatate (Tessalon Cap*) 100 mg PO BID PRN PRN Reason: COUGH Last Admin: 12/08/16 23:06 Dose: 100 mg Diphenhydramine HCl (Benadryl Po*) 50 mg PO BEDTIME PRN PRN Reason: SLEEP Docusate Sodium (Colace Cap*) 100 mg PO BID PRN PRN Reason: CONSTIPATION Enoxaparin Sodium (Lovenox(*)) 40 mg SUBCUT Q24H [facility] Vancomycin HCl 1,000 mg/ (Sodium Chloride) 250 mls @ 166.667 mls/hr IVPB Q8H [facility] Last Admin: 12/09/16 14:01 Dose: 166.667 mls/hr Ondansetron HCl (Zofran Inj*) 4 mg IV Q4H PRN PRN Reason: NAUSEA/VOMITING Pharmacy Consult (Vancomycin Per Pharmacy*) 1 note FOLLOW UP .VANC PER PHARMACY [facility] Pharmacy Profile Note (Vancomycin Trough Check) 1 note FOLLOW UP 05 ONE Stop: 12/10/16 05:31 Senna (Senokot Tab*) 1 tab PO BID PRN PRN Reason: CONSTIPATION Temazepam (Restoril Cap*) 15 mg PO BEDTIME PRN PRN Reason: INSOMNIA Last Admin: 12/08/16 23:06 Dose: 15 mg Vital Signs 12/08/16 12/08/16 12/08/16 20:02 20:07 20:42 Temperature 98 F Pulse Rate 87 88 Respiratory 14 16 Rate Blood Pressure 129/78 129/78 (mmHg) O2 Sat by Pulse 97 Oximetry 12/08/16 12/08/16 12/08/16 20:46 21:30 23:31 Temperature 98.4 F 98.7 F Pulse Rate 92 90 Respiratory 20 20 16 Rate Blood Pressure 123/66 120/67 (mmHg) O2 Sat by Pulse 100 96 Oximetry 12/09/16 12/09/16 12/09/16 04:18 07:55 08:00 Temperature 99.0 F 98.4 F Pulse Rate 91 79 Respiratory 16 18 16 Rate Blood Pressure 122/67 104/64 (mmHg) O2 Sat by Pulse 94 97 Oximetry 12/09/16 12/09/16 11:52 15:47 Temperature 98.6 F 98.3 F Pulse Rate 77 81 Respiratory 16 20 Rate Blood Pressure 108/63 119/64 (mmHg) O2 Sat by Pulse 98 99 Oximetry Appearance: NAD, interactive Eyes: No Scleral Icterus, PERRLA Ears/Nose/Mouth/Throat: NL Teeth, Lips, Gums, Clear Oropharnyx, Mucous Membranes Moist Neck: NL Appearance and Movements; NL JVP, Trachea Midline Respiratory: Symmetrical Chest Expansion and Respiratory Effort, Clear to Auscultation Cardiovascular: RRR, - - 2/6 diastolic EM, ?S4 loudest RUSB Abdominal: NL Sounds; No Tenderness; No Distention, No Hepatosplenomegaly Lymphatic: No Cervical Adenopathy, No Axillary Adenopathy Extremities: No Edema, No Clubbing, Cyanosis Skin: No Rash or Ulcers, No Nodules or Sclerosis Neurological: Alert and Oriented x 3 Result Diagrams: 12/08/16 20:00 12/08/16 20:00 Assess/Plan/Problems-Billing Assessment: 66 yo M with approximately 6 weeks drenching night sweats admitted after found with +blood cultures as outpatient now with TTE c/w infective endocarditis - Patient Problems (1) Infective endocarditis Comment: anterior mitral leaflet vegitation seen on TTE Pt has concern should he need RENNY in the future (ie for worsening MR). I have asked Dr. Vila to consult and comment on any specifical precautions that would be needed should RENNY be needed. c/w vancomycin. Bcx from 12/07 with 2 differnt species strep. Still be evaluated by lab. Dr. Kaplan is following. repeat CBC and CRP tomorrow 12/10 Hold on PICC placement for now (2) Transaminitis Comment: minimal repeat LFTs tomorrow If remain elevated plan for RUQ ultrasound (3) Laryngeal disorder Comment: stable (4) DVT prophylaxis Comment: lovenox
[2016-12-09] MEDS: Benzonatate CAP* 100 MG PO PRN (22:33)
[2016-12-10] MEDS: Temazepam CAP* 15 MG PO PRN ×2 (00:25→22:22)
[2016-12-10] MEDS ORDERED: Vancomycin Trough Check NOTE FOLLOW UP ONE (05:30)
[2016-12-10 05:47] LABS: Hematocrit 35 % (42-52); Hemoglobin 11.4 g/dl (14.0-18.0); Mean Corpuscular HGB Conc 33 g/dl (31-36); Mean Corpuscular Hemoglobin 27 pg (27-31); Mean Corpuscular Volume 84 fL (80-94); Mean Platelet Volume 6 um3 (7.4-10.4); Red Blood Count 4.18 10^6/ul (4.0-5.4); Red Cell Distribution Width 14 % (10.5-15); White Blood Count 7.3 10^3/ul (3.5-10.8)
[2016-12-10 06:01] LABS: Albumin 3.2 g/dL (3.2-5.2); C Reactive Protein 70.25 mg/L (< 5.00); Direct Bilirubin 0.1 mg/dL (0.03-0.18); Globulin 3.4 g/dL (2-4); Indirect Bilirubin 0.2 mg/dL (0.3-1.0); Total Bilirubin 0.3 mg/dL (0.2-1.0); Total Protein 6.6 g/dL (6.4-8.9)
[2016-12-10] MEDS ORDERED: Lidocaine 4% TOPICAL* 50 ML TOP.SOLN TOPICAL ONE (06:30)
[2016-12-10] MEDS ORDERED: Oxymetazoline 0.05% NASAL SPR* 15 ML BTL ONE (06:30)
[2016-12-10] MEDS: Vancomycin(*) 1,000 MG in NS 0.9% 250 ML* 250 ML IVPB SCH (06:33)
[2016-12-10] MEDS: Enoxaparin(*) 40 MG/0.4 ML SYR SUBCUT SCH (08:52)
[2016-12-10] MEDS: Aspirin EC Low Dose* 81 MG TAB.EC PO SCH (08:53)
--- NOTE | 2016-12-10 10:05 | PN ---
Subjective Date of Service: 12/10/16 Interval History: Patient seen this morning with Dr. Duff. Reports dry cough overnight, had sweats as well. Otherwise, feeling well, anxious to leave. Family History: Unchanged from Admission Social History: Unchanged from Admission Past Medical History: Unchanged from Admission Objective Active Medications: Acetaminophen (Tylenol Tab*) 650 mg PO Q4H PRN Al Hydrox/Mg Hydrox/Simethicone (Maalox Plus*) 30 ml PO Q6H PRN Aspirin (Aspirin Ec Low Dose*) 81 mg PO DAILY [facility] Atorvastatin Calcium (Lipitor*) 20 mg PO 1700 [facility] Benzonatate (Tessalon Cap*) 100 mg PO BID PRN Diphenhydramine HCl (Benadryl Po*) 50 mg PO BEDTIME PRN Docusate Sodium (Colace Cap*) 100 mg PO BID PRN Enoxaparin Sodium (Lovenox(*)) 40 mg SUBCUT Q24H [facility] Vancomycin HCl 1,250 mg/ (Sodium Chloride) 250 mls @ 166.667 mls/hr IVPB Q8H [facility] Ondansetron HCl (Zofran Inj*) 4 mg IV Q4H PRN Pharmacy Consult (Vancomycin Per Pharmacy*) 1 note FOLLOW UP .VANC PER PHARMACY [facility] Pharmacy Profile Note (Vancomycin Trough Check) 1 note FOLLOW UP 1130 ONE Senna (Senokot Tab*) 1 tab PO BID PRN Temazepam (Restoril Cap*) 15 mg PO BEDTIME PRN Vital Signs 12/09/16 12/09/16 12/09/16 11:52 15:47 19:54 Temperature 98.6 F 98.3 F 99.5 F Pulse Rate 77 81 91 Respiratory 16 20 18 Rate Blood Pressure 108/63 119/64 111/66 (mmHg) O2 Sat by Pulse 98 99 98 Oximetry 12/10/16 07:31 Temperature 98.3 F Pulse Rate 80 Respiratory 16 Rate Blood Pressure 118/69 (mmHg) O2 Sat by Pulse 99 Oximetry Oxygen Devices in Use Now: None Appearance: Middle-aged, M, laying in bed in NAD Eyes: No Scleral Icterus Ears/Nose/Mouth/Throat: Mucous Membranes Moist Neck: NL Appearance and Movements; NL JVP Respiratory: Symmetrical Chest Expansion and Respiratory Effort, Clear to Auscultation Cardiovascular: RRR, - - PRATIK Abdominal: NL Sounds; No Tenderness; No Distention Lymphatic: No Cervical Adenopathy Extremities: No Edema Skin: No Rash or Ulcers Neurological: Alert and Oriented x 3 Result Diagrams: 12/10/16 05:39 12/08/16 20:00 Assess/Plan/Problems-Billing Assessment: 66 yo M with approximately 6 weeks drenching night sweats admitted after found with +blood cultures as outpatient now with TTE c/w infective endocarditis - Patient Problems (1) Infective endocarditis Current Visit: Yes Status: Acute Code(s): I33.0 - ACUTE AND SUBACUTE INFECTIVE ENDOCARDITIS SNOMED Code(s): 434004671 Comment: anterior mitral leaflet vegitation seen on TTE, BCx from 12/07 and growing Strep Mutans (sensitivities pending) Hold on RENNY, evidence seems convincing enough at this time. c/w vancomycin. Will get CXR and RUQ US (2) Transaminitis Current Visit: Yes Comment: Check RUQ US (3) Laryngeal disorder Current Visit: Yes Comment: stable (4) DVT prophylaxis Current Visit: Yes Comment: lovenox
--- NOTE | 2016-12-10 10:27 | PN ---
Progress Note - Progress Note Date of Service: 12/10/16 SOAP: Subjective: CC: night sweats HPI: 66 year old man with 8 weeks night sweats and positive blood culture. TTE 12/10. Sweats and cough continue. No fever or diarrhea. Appetite and energy are good. Objective: [] Vital Signs Temp 36.8 C 12/10/16 07:31 Pulse 80 12/10/16 07:31 Resp 16 12/10/16 07:31 BP 118/69 12/10/16 07:31 Pulse Ox 99 12/10/16 07:31 Intake & Output 12/09/16 12/10/16 12/10/16 18:59 06:59 18:59 Intake Total 575 280 240 Output Total 0 Balance 575 280 240 Intake: IV Fluids 295 30 ABX - VANCOMYCIN 265 NS (0.9%) 30 30 IVPB 280 250 ABX - VANCOMYCIN 280 250 Oral 0 0 240 Output: Urine 0 Other: Estimated Void Medium # Bowel Movements 0 # Voids 1 Gen:awake, no distress HEENT:PERRL, MMM Neck:Supple Heart:RRR 2/6 systolic murmur Lungs:CTA BL Abd:+BS NTND soft Skin: no rash MSK: no spine tenderness or joint synovitis Neuro: CN 2-12 intact, moves all extremities Laboratory Results - last 24 hr 12/10/16 12/10/16 12/10/16 05:39 05:39 05:39 WBC 7.3 RBC 4.18 Hgb 11.4 L Hct 35 L MCV 84 MCH 27 MCHC 33 RDW 14 Plt Count 163 MPV 6 L Neut % (Auto) 66.9 Lymph % (Auto) 22.4 L [place] % (Auto) 9.5 H Eos % (Auto) 0.6 Baso % (Auto) 0.6 Absolute Neuts (auto) 4.9 Absolute Lymphs (auto) 1.6 Absolute Monos (auto) 0.7 Absolute Eos (auto) 0 Absolute Basos (auto) 0 Absolute Nucleated RBC 0.01 Nucleated RBC % 0.1 Total Bilirubin 0.30 Direct Bilirubin 0.10 Indirect Bilirubin 0.2 L AST 41 H ALT 43 Alkaline Phosphatase 142 H C-Reactive Protein 70.25 H Total Protein 6.6 Albumin 3.2 Globulin 3.4 Albumin/Globulin Ratio 0.9 L Vancomycin Trough 12.4 Assessment: 1. Viridans group strep infective endocarditis, anterior leaflet of mitral valve 2. elevated CRP 3. night sweats 4. cough, ?lung abscess 5. transaminits ?liveer abscess Plan: 1. continue vancomycin goal tr 15-20, ceftriaxone. PICC. 2. Recheck BC 12/11 3. CXR and liver US 35 minutes floor time >50% face to face in counseling regarding next steps in work up and antibiotic treatment. All questions answered.
--- NOTE | 2016-12-10 10:58 | RAD ---
INDICATION: Cough for 2 months. Bacteremia. History of endocarditis. COMPARISON: November 18, 2016 CT. TECHNIQUE: Dual energy PA and routine lateral views of the chest were obtained. REPORT: Elevated lung volumes and both diffuse mild prominence of the interstitial markings and patchy rarefaction of the mid to upper lung zone interstitial markings. No focal pulmonary lesion, compelling alveolar consolidation, pleural effusion, pneumothorax. The heart, pulmonary vasculature, and mediastinal contours are unremarkable. Unremarkable soft tissue contours and osseous structures. IMPRESSION: Stigmata of obstructive lung disease. No acute pulmonary or cardiac process evident.
--- NOTE | 2016-12-10 11:30 | RAD ---
HISTORY: Right upper quadrant, rule out abscess COMPARISONS: None TECHNIQUE: Multiple transverse and longitudinal ultrasound images were obtained of the right upper quadrant of the abdomen using grayscale and color Doppler imaging. FINDINGS: LIVER: The liver is normal in shape, size, contour, and echogenicity. There are no focal parenchymal masses. There is normal hepatopedal flow of the portal vein on Doppler imaging. BILIARY TREE: There is no intrahepatic or extrahepatic biliary dilatation. The common duct measures 0.5 cm. GALLBLADDER: The gallbladder is incompletely distended but is grossly normal. PANCREAS: The head of the pancreas is unremarkable. The tail of the pancreas is not well visualized secondary to overlying bowel gas. RIGHT KIDNEY: There is a cyst of the midpole of the right kidney measuring 2.6 cm in size. There is no hydronephrosis or nephrolithiasis. The right kidney measures 10.6 x 4.6 x 4.9 cm. AORTA AND IVC: The aorta and IVC are unremarkable. FLUID: There are no pleural effusions. There is no free fluid within the hepatorenal recess. OTHER FINDINGS: None. IMPRESSION: NO ACUTE SONOGRAPHIC PATHOLOGY OF THE VISUALIZED PORTION OF THE ABDOMEN. NO LOCULATED FLUID COLLECTION TO SUGGEST ABSCESS.
[2016-12-10] MEDS: Vancomycin(*) 1,250 MG in NS 0.9% 250 ML* 250 ML IVPB SCH ×2 (12:48→19:49)
--- NOTE | 2016-12-10 13:02 | CONS ---
CONSULTATION REPORT: DATE OF CONSULT: 12/10/16 REQUESTING PHYSICIAN: Dr. Jeffries. CONSULTATION PERFORMED BY: Dr. Brady. REASON FOR CONSULT: Vocal cord paralysis. HISTORY OF PRESENT ILLNESS: The patient has a history of having an idiopathic vocal cord paralysis, but ultimately has developed a good voice, but initially it was very breathy. He had an injection implant that did not go well. With reevaluation, he had developed a good voice because the left vocal cord had migrated into the middle so that the right vocal cord could contact it to produce a good voice, so he does not have any type of implant and at this time, he is very concerned about intubation because he was told that if he is intubated, he could push the vocal cord out of position. PHYSICAL EXAM: He is alert and oriented with quite a good voice. PROCEDURE: Nasolaryngoscopy was performed after spraying his nose with Braulio- Synephrine with 4% lidocaine. He has a left vocal cord paralysis just off midline but with really good contact from the right vocal cord, which is compensating to produce a good voice. Left vocal cord is a bit short. There is no mobility of this vocal cord at all. ASSESSMENT AND PLAN: Assessment is that the patient has a left true vocal cord paralysis, but it has ended up in a very good position for the right vocal cord to compensate for the paralysis and thus he is producing a good voice. It is a concern that the vocal cord could be pushed over with intubation; however, sometimes it is necessary to have surgery requiring endotracheal intubation. My recommendation that if he does need intubation, a microlaryngoscopy tube should be used. What this means is endotracheal tube the anesthesiologists think they can use, this would minimize pushing the vocal cord out of its current position. [id number]/[facility] #: [id number] MTDD
[2016-12-10] MEDS: Atorvastatin* 20 MG TAB PO SCH (18:52)
[2016-12-10] MEDS: Benzonatate CAP* 100 MG PO PRN (22:22)
[2016-12-11] MEDS: Vancomycin(*) 1,250 MG in NS 0.9% 250 ML* 250 ML IVPB SCH (04:56)
[2016-12-11 07:45] VITALS: BP 114/69
[2016-12-11] MEDS: Aspirin EC Low Dose* 81 MG TAB.EC PO SCH (09:26)
[2016-12-11] MEDS: Enoxaparin(*) 40 MG/0.4 ML SYR SUBCUT SCH (09:29)
--- NOTE | 2016-12-11 10:56 | DCNOTE ---
Patient seen this morning. Still with night sweats and dry cough. Anxious to leave. On exam, RRR, s1 and s2 present, PRATIK, lungs CTA B/L, no w/r/r, abd soft, NTND, BS+ Strep is seymour-sensitive. Will discharge on CTX 2 g IV daily, patient prefers to come in to infusion center for treatment. Will f/u with Dr. Duff and Dr. Emerson as an outpatient.
[2016-12-11] MEDS ORDERED: Vancomycin Trough Check NOTE FOLLOW UP ONE (11:30)
--- NOTE | 2016-12-12 11:09 | DS ---
CC: Dr. Emerson; Dr. Juan J Duff DISCHARGE SUMMARY: DATE OF ADMISSION: 12/08/16 DATE OF DISCHARGE: 12/11/16 PRIMARY CARE PROVIDER: Dr. Emerson. PRINCIPAL DISCHARGE DIAGNOSIS: Infectious endocarditis with Streptococcus mutans. SECONDARY DIAGNOSES: 1. Insomnia. 2. Hyperlipidemia. 3. Idiopathic partial vocal cord paralysis. 4. Seasonal allergies. DISCHARGE MEDICATION REGIMEN: 1. Temazepam 30 mg by mouth at bedtime 2. Atorvastatin 20 mg by mouth daily. 3. Guaifenesin with codeine 5 to 10 mL by mouth every 4 hours as needed for cough. 4. Clarinex 5 mg by mouth daily. 5. Aspirin 81 mg by mouth daily. 6. Ceftriaxone 2 g IV daily. CONSULTANTS DURING HOSPITALIZATION: 1. Dr. Juan J Duff, Infectious Disease 2. Dr. Flako Brady, ENT. STUDIES DURING HOSPITALIZATION: Transthoracic echocardiogram, conclusion: Mild concentric LVH. Es timated ejection fraction of 55% to 60%. Aortic valve leaflets are mildly thickened. Trace aortic r egurgitation, mitral valve leaflets are mildly thickened. There is prolapse of the posterior leafle ts of the mitral valve. There is uhgi-wt-eaertcpa mitral regurgitation. The mitral regurgitant jet is eccentric, directed medially. A mass is visualized on the mitral valve, it appeared consistent with vegetation. The echo dense lesion is mobile and elongated measuring 7 mm. It appears to be at tached to the anterior leaflet and prolapsed into the left atrium during systole. Findings are susp icious for SBE or less likely a ruptured chordae tendineae. Direct comparison made to August 2016 ec ho. At that time, there was a redundant mobile lesion attached to the ventricular surface of the pos terior leaflet possibly representing a mobile chordae or less likely a vegetation. The mobile lesio n attached to the anterior leaflet is new compared to August 2016. Abdominal ultrasound, impression: No acute sonographic pathology of the visualized portion of the a bdomen. No loculated fluid collection to suggest abscess. Chest x-ray, impression: Stigmata of obstructive lung disease. No acute pulmonary or cardiac proce ss evident. HISTORY OF PRESENT ILLNESS AND HOSPITAL SUMMARY: Please see the full history and physical by Garfield Garsia DO, for full details. Briefly, Mr. Triana is a 66-year- old man with an unremarkable past m edical history, who presented to the hospital with 8 weeks of night sweats and positive blood cultu res that were found as an outpatient. The patient underwent a transthoracic echocardiogram with jose luis centeno above concerning for mobile lesion on the mitral valve. It was felt that the patient may need a RENNY and ENT was consulted, who recommended if a RENNY was done, a microlaryngoscopy tube should be used if the patient required intubation. After further discussion with Dr. Duff, it was felt th at based on the transthoracic echo findings, there was no need to proceed with a RENNY; we could treat this as endocarditis. The patient was treated with vancomycin and ceftriaxone. Subsequent blood c ultures here also grew Strep mutans, which was found on his outpatient culture; it was pansensitive. A decision was made to discharge the patient with a PICC line in place with plans for daily ceftri axone dosing. He did have a repeat set of blood cultures drawn on the day of discharge. The toya t will follow up with Dr. Duff in the clinic and has chosen to come to the infusion center daily for his IV antibiotics. He will follow up with Dr. Emerson as well. TIME SPENT: Total time spent on this discharge 45 minutes. This is the summary of the hospitalization, please see the full medical record for further details. [id number]/[facility] #: [id number]
== END 2016-12-11 11:45 | disposition home or self-care (01) | DRG 193 ==
LOC: ED 17:52 → MED 20:00
PROVIDERS: ADMIT Pediatrics; ATTEND Hospitalist
PROC: 02HV33Z Insertion of Infusion Device into Superior Vena Cava, Percutaneous Approach (ICD-10-PCS; 2016-12-09)
PROC: 0CJS8ZZ Inspection of Larynx, Via Natural or Artificial Opening Endoscopic (ICD-10-PCS; principal; 2016-12-10)
DX: I33.0 Acute and subacute infective endocarditis (principal); J38.01 Paralysis of vocal cords and larynx, unilateral; E78.5 Hyperlipidemia, unspecified; G89.29 Other chronic pain; M54.9 Dorsalgia, unspecified; J30.2 Other seasonal allergic rhinitis; E78.00 Pure hypercholesterolemia, unspecified; R05 Cough; R40.2412 Glasgow coma scale score 13-15, at arrival to emergency department; G47.00 Insomnia, unspecified; B95.4 Other streptococcus as the cause of diseases classified elsewhere; R61 Generalized hyperhidrosis; R74.0 Nonspecific elevation of levels of transaminase and lactic acid dehydrogenase [LDH]; I08.0 Rheumatic disorders of both mitral and aortic valves; Z82.3 Family history of stroke; Z82.49 Family history of ischemic heart disease and other diseases of the circulatory system; Z79.82 Long term (current) use of aspirin; Z72.89 Other problems related to lifestyle; Z87.891 Personal history of nicotine dependence
CPT/HCPCS: 36415; 71020; 76705; 80053; 80076; 80202; 81003; 81015; 83605; 83735; 84484; 85025; 86140; 87040; 87205; 93306; A9270-GY; C1751; J0696; J1644; J1650; J3370

== ENCOUNTER 2019-03-11 09:50 | Emergency (ER) | payer MEDICARE, BC ==
[2019-03-11 09:59] VITALS: BP 118/82
--- NOTE | 2019-03-11 10:12 | UC ---
Throat Pain/Nasal Mauro HPI - HPI Summary HPI Summary: 68-year-old male comes in with a chief complaint of sinusitis symptoms for 10 days. Has been having yellow rhinorrhea. He has sore throat. Is having frontal and maxillary sinus pressure and pain into his upper teeth. No recent fevers measured. Also having some cough and chest congestion. Been trying multiple aitd-wzt-ftccwav medications with very little or no relief. Has not tried any nasal sprays. - History of Current Complaint Chief Complaint: UCRespiratory Stated Complaint: SINUS ISSUE Time Seen by Provider: 03/11/19 10:03 Pain Intensity: 5 - Allergies/Home Medications Allergies/Adverse Reactions: Allergies Allergy/AdvReac Type Severity Reaction Status Date / Time SEASONAL Allergy Unknown CONGESTION, Uncoded 03/11/19 10:01 RUNNY NOSE PMH/Surg Hx/FS Hx/Imm Hx Previously Healthy: Yes Endocrine History: Dyslipidemia Cardiovascular History: Hypertension, Other - Cardiac valve disease - Surgical History Surgical History: Yes Surgery Procedure, Year, and Place: Left rotator cuff repair 2007. knee repair - ARTHROSCOPIC. PIANIDAL cyst removed in 1979. 2015 VOCAL CORD SURGERY DUE TO A PARALYZED VOCAL CORD - Family History Known Family History: Positive: Cardiac Disease Negative: Hypertension, Diabetes - Social History Alcohol Use: Rare Substance Use Type: None Smoking Status (MU): Former Smoker Type: Cigarettes Amount Used/How Often: 1 pack a day Length of Time of Smoking/Using Tobacco: 11 years Have You Smoked in the Last Year: No When Did the Patient Quit Smoking/Using Tobacco: 1990 Household Exposure Type: Cigarettes - Immunization History Most Recent Influenza Vaccination: 2014 Most Recent Pneumonia Vaccination: none Review of Systems All Other Systems Reviewed And Are Negative: Yes Constitutional: Positive: Other - see hpi Skin: Positive: Negative Eyes: Positive: Negative ENT: Positive: Sore Throat, Nasal Discharge, Sinus Congestion, Sinus Pain/ Tenderness Respiratory: Positive: Cough, Other - see hpi Cardiovascular: Positive: Negative Gastrointestinal: Positive: Negative Motor: Positive: Negative Neurovascular: Positive: Negative Musculoskeletal: Positive: Negative Neurological: Positive: Negative Psychological: Positive: Negative Is Patient Immunocompromised?: No Physical Exam Triage Information Reviewed: Yes Appearance: Well-Appearing, No Pain Distress, Well-Nourished Vital Signs: Initial Vital Signs Temp 98 F 03/11/19 09:56 Pulse 74 03/11/19 09:56 Resp 15 03/11/19 09:56 BP 118/82 03/11/19 09:56 Pulse Ox 100 03/11/19 09:56 Vital Signs Reviewed: Yes Eye Exam: Normal Eyes: Positive: Conjunctiva Clear ENT: Positive: Pharyngeal erythema, Nasal congestion, Nasal drainage, TMs normal Neck: Positive: Supple Respiratory: Positive: Lungs clear, Normal breath sounds, No respiratory distress Cardiovascular: Positive: RRR, Other: - Positive murmur Musculoskeletal: Positive: Strength Intact, ROM Intact Neurological: Positive: Muscle Tone Normal Psychological: Positive: Age Appropriate Behavior Skin Exam: Normal Throat Pain/Nasal Course/Dx - Differential Dx/Diagnosis Provider Diagnosis: Sinusitis Discharge ED - Sign-Out/Discharge Documenting (check all that apply): Patient Departure All imaging exams completed and their final reports reviewed: No Studies - Discharge Plan Condition: Stable Disposition: HOME Prescriptions: Amoxicillin/Clavulanate TAB* [Augmentin TAB 875*] 875 mg PO BID #20 tab Fluticasone NASAL SPRAY 50MCG* [Flonase NASAL SPRAY 50MCG*] 2 spray BOTH NARES DAILY #1 btl Patient Education Materials: Sinusitis (ED) Referrals: Flako Emerson MD [Primary Care Provider] - Additional Instructions: FOLLOW UP WITH YOUR DOCTOR IF NOT COMPLETELY IMPROVED. GET RECHECKED SOONER IF YOUR CONDITION WORSENS OR ANY QUESTIONS OR CONCERNS. - Billing Disposition and Condition Condition: STABLE Disposition: Home
== END 2019-03-11 10:19 | disposition home or self-care (01) ==
LOC: UCEAST 09:50
DX: J32.9 Chronic sinusitis, unspecified (principal); I10 Essential (primary) hypertension; Z91.09 Other allergy status, other than to drugs and biological substances; Z87.891 Personal history of nicotine dependence
CPT/HCPCS: 99212; G0463